=== PATIENT | female | born 2005 | race Caucasian/White ===

== ENCOUNTER 2025-02-09 17:29 | Outpatient (REF) | payer MEDICAID, SELFPAY ==
--- OUTSIDE RECORDS SUMMARY | 2025-02-09 11:00 | XMS_ITS | Encounter Summary ---
Author Organization [employer] Address [address] 7[address] [place] [address] Care Team Providers Care Ladies' Locker Room Attendant Name Role Phone Reena Gonsalez MD Primary Care Provider [phone] Encounter Details Date Type Department Care Team ([facility] st Contact Info) Description 02/09/2025 11:00 AM EDT Office Visit [facility] [address] [place], [place] [phone] Soha Arndt FNP [address] [place], [place] [phone] PID (pelvic inflammatory disease) (Primary Dx); UTI symptoms Social History Tobacco Use Types Packs/Day Years Used Date Smoking Tobacco: Never Passive Smoke Exposure: Never Smokeless Tobacco: Never Depression Answer Date Recorded Patient Health Questionnaire-9 Score 9 02/09/2025 Patient Health Questionnaire-9 Score 9 02/09/2025 Last PHQ-9: Questionnaire Data Not on file 1 Housing Stability Answer Date Recorded What is your housing situation today? I have martell kim 02/09/[address] you li ve. Do you have problems with any of the following? None of the above 02/09/2025 Food Insecurity Answer Date Recorded Within the past 12 months, y ou worried that your food would run out before you got money to buy more: Never True 02/09/2025 Within the past 12 months,th e food you bought just didn't last and you didn't have enough money to get more: Never True Transportation Answer Date Recorded In the past 12 months, has l ack of transportation kept you from medical appts, meetings, work or from getting things needed for daily living? No 02/09/2025 Utilities Answer Date Recorded In the past 12 months, has t he electric, gas, oil or water company threatened to shut off services in your home? No 02/09/2025 Depression Answer Date Recorded Patient Health Questionnaire-2 Score 1 02/09/2025 Internet Access Answer Date Recorded Internet Access Q1 Yes 02/09/2025 Internet Access Q2 Not on file 02/09/2025 Comments Unknown Sex and Gender Information Value Date Recorded Sex Assigned at Female 02/27/2022 10:17 AM EDT Legal Sex Female 10:17 AM EDT Gender Identity Female 02/27/2022 10:17 AM EDT Sexual Orientation Bisexual 02/27/2022 10 :17 AM EDT documented as of this encounter Last Filed Vital Signs Vital Sign Reading Time Taken Comments Blood Pressure 118/70 02/09/2025 11:10 AM EDT Pulse 64 02/09/2025 11:10 AM EDT Temperature 36.8 C (98.2 F) 02/09/2025 11:10 AM EDT Respiratory Rate 16 02/09/2025 11:10 AM EDT Oxygen Saturation 98% 02/09/2025 11:10 AM EDT Inhaled Oxygen Concentration - - Weight 73.3 kg (161 lb 8 oz) 02/09/2025 11:10 AM EDT Height 163.2 cm (5' 4.24 ) 02/09/2025 11:10 AM E DT Body Mass Index 27.51 02/09/2025 11:10 AM EDT documented in this encounter Functional Status * Over the past 2 weeks, how often have you been bothered by any of the following problems? Question Answer Date of Assessment Author Patient Health Questionnaire -2 Score 1 02/09/2025 1:01 PM EDT Britta Altamirano MA * Little interest or pleasure in doing things Answer Date of Assessment Author Several days 02/09/2025 1:01 PM EDT Pablito Altamirano MA * Feeling down, depressed, or hopeless Answer Date of Assessment Author Not at all 02/09/2025 1:01 PM EDT Pablito Altamirano MA * Trouble falling or staying asleep, or sleeping too much Answer Date of Assessment Author More than half the days 02/09/2025 1:01 PM EDT Britta Osborne MA * Feeling tired or having little energy Answer Date of Assessment Author More than half the days 02/09/2025 1:01 PM EDT Britta Osborne MA * Poor appetite or overeating Answer Date of Assessment Author Nearly every day 02/09/2025 1:01 PM MAMADOUT Britta Altamirano MA * Feeling bad about yourself - or that you are a failure or have let yourself or your family down Answer Date of Assessment Author Not at all 02/09/2025 1:01 PM EDT Pablito Altamirano MA * Trouble concentrating on things, such as reading the newspaper or watching television Answer Date of Assessment Author Several days 02/09/2025 1:01 PM MAMADOUT Pablito Altamirano MA * Moving or speaking so slowly that other people could have noticed? Or the opposite - being so fidgety or restless that you have been moving around a lot more than usual. Answer Date of Assessment Author Not at all 02/09/2025 1:01 PM Pablito Alfredo MA * Thoughts that you would be better off or hurting yourself in some way Answer Date of Assessment Author Not at all 02/09/2025 1:01 PM AMMADOUT Pablito Altamirano MA * Patient Health Questionnaire-9 Score Answer Date of Assessment Author 9 02/09/2025 1:01 PM MAMADOUT Pablito Altamirano MA * How difficult have these problems made it for you to do your work, take care of things at home, or get along with other people? Answer Date of Assessment Author Somewhat difficult 02/09/2025 1:01 PM EDT Britta Altamirano MA * Over the last 2 weeks, how often have you been bothered by any of the following problems? Question Answer Date of Assessment Author Feeling nervous, anxious, or on edge 1 02/09/2025 1:00 PM MAMADOUT Britta Altamirano MA Not being able to stop or co ntrol worrying 1 02/09/2025 1:00 PM MAMADOUT Britta Altamirano MA Worrying too much about diff erent things 1 02/09/2025 1:00 PM EDT Britta Altamirano MA Trouble relaxing 0 02/09/2025 1:00 PM EDT Britta Osborne MA Being so restless that it is hard to sit still 1 02/09/2025 1:00 PM EDT Britta Altamirano MA Becoming easily annoyed or irritable 0 02/09/2025 1:00 PM EDT Britta Altamirano MA Feeling afraid as if somethi ng awful might happen 0 02/09/2025 1:00 PM EDT Britta Altamirano MA MARIA DE JESUS-7 Total Score 4 02/09/2025 1:00 PM EDT Britta Altamirano MA documented as of this encounter Plan of Treatment Upcoming Encounters Date Type Department Care Team (Late st Contact Info) Description 02/24/2025 9:00 AM EDT Office Visit [facility] MED[facility]INE [address] [place] [address] Soha Arndt FNP [address] [place] [address] 03/11/2025 11:15 AM EST Office Visit [address] [address] Reena Gonsalez MD [address] [place] [address] Scheduled Orders Name Type Priority Associated Diagnoses Orde r Schedule Bacterial Vaginosis Panel Microbiology Routine PID (pelvic inflammatory disease) Ordered: 02/09/2025 Chlamydia/N. Gonorrhoeae, PCR, Urine Lab Routine PID (pelvic inflammatory disease) Ordered: 02/09/2025 Bacterial Vaginosis Panel Microbiology Routine PID (pelvic inflammatory disease) Ordered: 02/09/2025 documented as of this encounter Procedures Procedure Name Priority Date/Time Associated Diagnosis Comments POCT , URINE Routine 02/09/2025 11:52 AM EDT PID (pelvic inflammatory disease) POCT URINALYSIS DIPSTICK Routine 02/09/2025 11:52 AM EDT UTI symptoms documented in this encounter Results * POCT Urinalysis (02/09/2025 11:52 AM EDT) Color, UA Yellow Clarity, UA Cloudy Glucose, UA Negative Bilirubin, UA Negative Ketones, UA Negative Spec Grav, UA 1.005 Blood, UA Negative Negative, None Detected pH, UA 6.0 Protein, UA Negative Urobilinogen, UA 0.2 Leukocytes, UA Negative Negative, Rare, Trace Nitrite, UA Negative Negative, None Detected QC Media Lot # [id number] Lot# Expiration Date , Urine (Urine, Random) 02/09/2025 11:52 AM EDT [email or web address] POINT OF CARE TEST ENTER/EDIT ORDERABLES Final Result * POCT Urine (02/09/2025 11:52 AM EDT) Preg Test, Ur Negative Negative, Indeterminate, None Detected, Invalid, Specimen unsatisfactory for evaluation, Weakly Positive, 2+ QC Media Lot # [id number] Lot# Expiration Date Urine 02/09/2025 11:5 2 AM EDT [facility] POINT OF CARE TEST ENTER/EDIT ORDERABLES Final Result documented in this encounter Visit Diagnoses Diagnosis PID (pelvic inflammatory disease)- Primary Unspecified inflammatory disease of female pelvic organs and tissues UTI symptoms documented in this encounter Additional Health Concerns Assessment Noted Time PHQ-9 Depression Total Score: 9 02/10/20 25 1:01 PM EDT documented as of this encounter Care Teams Ladies' Locker Room Attendant Relationship Specialty Start Date End Date Reena Gonsalez MD [address] [place] [phone] PCP - General Family Medicine 02/07/22 documented as of this encounter
--- OUTSIDE RECORDS SUMMARY | 2025-02-09 17:32 | XMS_ITS | Encounter Summary ---
Author Organization [employer] Address [address] [place] [address] 7t [place] [address] Care Team Providers Care Hand Stoner Name Role Phone Reena Gonsalez MD Primary Care Provider [phone] Reason for Visit * Reason Onset Date Comments FYI 07/01/2024 Encounter Details Date Type Department Care Team (Late st Contact Info) Description 07/01/2024 Telephone [facility] MEDICINE [address] [place], [place] [phone] Reena Gonsalez MD [address] [place], [place] [phone] FY Social History Tobacco Use Types Packs/Day Years Used Date Smoking Tobacco: Never Passive Smoke Exposure: Never Smokeless Tobacco: Never Depression Answer Date Recorded Patient Health Questionnaire-9 Score 15 02/25/2024 Patient Health Questionnaire-9 Score 15 02/25/2024 Last PHQ-9: Questionnaire Data Not on file 1 Housing Stability Answer Date Recorded What is your housing situation today? I have martell kim 07/09/[address] you li ve. Do you have problems with any of the following? None of the above 07/09/2023 Food Insecurity Answer Date Recorded Within the past 12 months, y ou worried that your food would run out before you got money to buy more: Never True 07/09/2023 Within the past 12 months,th e food you bought just didn't last and you didn't have enough money to get more: Never True 02/2024 Transportation Answer Date Recorded In the past 12 months, has l ack of transportation kept you from medical appts, meetings, work or from getting things needed for daily living? No 07/09/2023 Utilities Answer Date Recorded In the past 12 months, has t he electric, gas, oil or water company threatened to shut off services in your home? No 07/09/2023 Depression Answer Date Recorded Patient Health Questionnaire-2 Score 4 02/25/2024 Comments Unknown Sex and Gender Information Value Date Recorded Sex Assigned at Female 02/27/2022 10:17 AM EDT Legal Sex Female 10:17 AM EDT Gender Identity Female 02/27/2022 10:17 AM EDT Sexual Orientation Bisexual 02/27/2022 10 :17 AM EDT documented as of this encounter Miscellaneous Notes * Telephone Encounter - Mainor [employer]emak[employer]es - 07/01/2024 10:18 AM EST Tc from pt stating that she has not been taking medication prescribed for anxiety and depression. Pt is requesting a call back at [phone] documented in this encounter Plan of Treatment Upcoming Encounters Date Type Department Care Team (Late st Contact Info) Description 02/24/2025 9:00 AM EDT Office Visit [facility] MEDICINE [address] [place] [address] Soha Arndt FNP [address] [place] [address] 03/11/2025 11:15 AM EST Office Visit [address] [address] Reena Gonsalez MD [address] [place] [phone] documented as of this encounter Visit Diagnoses Not on filedocumented in this encounter Additional Health Concerns Assessment Noted Time PHQ-9 Depression Total Score: 15 024 3:15 PM EDT documented as of this encounter Care Teams Hand Stoner Relationship Specialty Start Date End Date Reean Gonsalez MD [address] [place] [phone] PCP - General Family Medicine 02/07/22 documented as of this encounter
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
--- OUTSIDE RECORDS SUMMARY | 2025-02-09 17:32 | XMS_ITS | Encounter Summary ---
Author Organization [employer] Address [address] [place] [address] 7t [place] [address] Care Team Providers Care Census Enumerator Name Role Phone Reena Gonsalez MD Primary Care Provider [phone] Reason for Visit * Reason Onset Date Comments Appointment Request 07/01/2024 Encounter Details Date Type Department Care Team (Late st Contact Info) Description 07/01/2024 Telephone [facility] MEDICINE [address] [place], [place] [phone] Reena Gonsalez MD [address] [place], [place] [phone] Appointment Request Social History Tobacco Use Types Packs/Day Years [...] encounter Miscellaneous Notes * Telephone Encounter - Gordo Reinaldo - 07/01/2024 9:31 AM EST Tc from pt requesting to reschedule today's follow up, staff writer was unable to find availability. Please contact pt at [phone]. documented in this encounter Plan of Treatment Upcoming Encounters Date Type Department Care Team (Late st Contact Info) Description 02/24/2025 9:00 AM EDT Office Visit [facility] MEDICINE [address] [place] [phone] Soha Arndt FNP [address] [place] [address] 03/11/2025 11:15 AM EST Office Visit [address] [address] Reena Gonsalez MD [address] [place] [phone] documented as of this encounter Visit Diagnoses Not on filedocumented in this encounter Additional Health Concerns Assessment Noted Time PHQ-9 Depression Total Score: 15 024 3:15 PM EDT documented as of this encounter Care Teams Census Enumerator Relationship Specialty Start Date End Date Reena Gonsalez MD [address] [place] [address] PCP - General Family Medicine 02/07/22 documented as of this encounter
--- OUTSIDE RECORDS SUMMARY | 2025-02-09 17:32 | XMS_ITS | Encounter Summary ---
Author Organization [employer] Address 75 [facility] 7t [place] [address] Care Team Providers Care Work Measurement Engineer Name Role Phone Reena Gonsalez MD Primary Care Provider [phone] Reason for Visit * Reason Onset Date Comments Nurse Triage 02/06/2025 Encounter Details Date Type Department Care Team (Late st Contact Info) Description 02/06/2025 Telephone [facility] MEDICINE [address] [place], [place] [phone] Reena Gonsalez MD [address] [place], [place] [phone] Nurse Triage Social History Tobacco Use Types Packs/Day Years [...] the past 12 months, has t he [employer], gas, oil or water [employer] threatened to shut off services in your [...] encounter Miscellaneous Notes * Telephone Encounter - Marielle Paz RN - 02/06/2025 9:50 AM EDT T/C placed to pt to triage. Pt reporting midline abdominal pain located under her umbilicus. She states sometimes pain radiates to her left side. This has been happening for a long time but has worsened over the past couple months per pt. Pt reports that she has an ovarian cyst so she is unsure if r/t that. Pt reports that she takes Tylenol which completely alleviates her pain. However, when pain is happening it is sometimes 10/10 pain and she feels like she can't move. She took Tylenol a little while ago so feels no pain right now. Pt reports last menses 2 weeks ago, has nexplanon for contraception. Pt reports that pain exacerbated with sex and so she hasn't had sex in a very long time because she is scared of the pain. Pt denies recent vomiting, diarrhea, fever, vaginal discharge or odor, changes in voiding urine or feces, or numbness or tingling in extremities. Pt declined WIC today or tomorrow. Booked ASK for Sunday with Soha. Pt advised to rest and take Tylenol PRN, never exceeding >3g/ day. Pt given WIC hours of operation in case she changes her mind. Gave ED precautions and informed of NTTS in case she has any questions or concerns while we are closed. Pt agrees withdisposition . Protocol Used: Abdominal Pain - Female (Adult) Protocol-Based Disposition: See in Office or Video Visit within 2 Weeks Positive Triage Question: * Pain with sexual intercourse (dyspareunia) * All higher-acuity triage questions were negative Care Advice Discussed: * Rest * Reasons To Call Back - Severe pain lasts over 1 hour - You become worse * Telephone Encounter - Eve Geovanni Villa - 02/06/2025 9:29 AM EDT Symptom: Abdominal Pain - Female - Not Outcome: Talk to a nurse or provider within 15 minutes Reason: Severe pain now The caller accepted this outcome. Contact pt at [phone] documented in this encounter Plan of Treatment Upcoming Encounters Date Type Department Care Team (Late st Contact Info) Description 02/24/2025 9:00 AM EDT Office Visit [facility] MEDICINE [address] [place] [phone] Soha Arndt FNP [address] [place] [address] 03/11/2025 11:15 AM EST Office Visit [facility] MEDICINE [address] [place] [phone] Reena Gonsalez MD [address] [place] [phone] documented as of this encounter Visit Diagnoses Not on filedocumented in this encounter Additional Health Concerns Assessment Noted Time PHQ-9 Depression Total Score: 15 024 3:15 PM EDT documented as of this encounter Care Teams Work Measurement Engineer Relationship Specialty Start Date End Date Reena Gonsalez MD [address] [place] [phone] PCP - General Family Medicine 02/07/22 documented as of this encounter
--- OUTSIDE RECORDS SUMMARY | 2025-02-09 17:32 | XMS_ITS | Encounter Summary ---
Author Organization [employer] Address 75 [facility] 7t [place] [address] Care Team Providers Care Belt Brander Name Role Phone Reena Gonsalez MD Primary Care Provider [phone] Reason for Visit * Reason Onset Date Comments callback requested 03/07/2024 Encounter Details Date Type Department Care Team (Late st Contact Info) Description 03/07/2024 Telephone [facility] MEDICINE [address] [place], [place] [phone] Reena Gonsalez MD [address] [place], [place] [phone] callback requested Social History Tobacco Use Types Packs/Day Years [...] encounter Miscellaneous Notes * Telephone Encounter - Cyndy Galarza - 03/07/2024 4:07 PM EST Tc from [facility] ([facility]) requesting a callback due to pt reasonable accomodation paperwork. [facility] callback number [phone] / ext [phone] documented in this encounter Plan of Treatment Upcoming Encounters Date Type Department Care Team (Late st Contact Info) Description 02/24/2025 9:00 AM EDT Office Visit [facility] MEDICINE [address] [place] [phone] Soha Arndt FNP [address] [place] [address] 03/11/2025 11:15 AM EST Office Visit [address] [address] Reena Gonsalez MD [address] [place] [phone] documented as of this encounter Visit Diagnoses Not on filedocumented in this encounter Additional Health Concerns Assessment Noted Time PHQ-9 Depression Total Score: 15 024 3:15 PM EDT documented as of this encounter Care Teams Belt Brander Relationship Specialty Start Date End Date Reena Gonsalez MD [address] [place] [phone] PCP - General Family Medicine 02/07/22 documented as of this encounter
--- OUTSIDE RECORDS SUMMARY | 2025-02-09 17:32 | XMS_ITS | Encounter Summary ---
Author Organization [employer] Address 75 [facility] 7t [place] [address] Care Team Providers Care Electrical Transmission Engineer Name Role Phone Reena Gonsalez MD Primary Care Provider [phone] Encounter Details Date Type Department Care Team (Latest Contact Info) Description 02/09/2025 Travel Social History Tobacco Use Types Packs/Day Years [...] AM EDT documented as of this encounter Functional Status * Over the [...] Author Not at all 02/09/2025 1:01 PM MAMADOUT Pablito Altamirano MA * Thoughts that you would be better off or hurting yourself in some way Answer Date of Assessment Author Not at all 02/09/2025 1:01 PM EDT Pablito Altamirano MA * Patient Health Questionnaire-9 Score Answer Date of Assessment Author 9 02/09/2025 1:01 PM EDT Pablito Altamirano MA * How difficult have [...] or on edge 1 02/09/2025 1:00 PM EDT Britta Altamirano MA Not being able to stop or co ntrol worrying 1 02/09/2025 1:00 PM EDT Britta Altamirano MA Worrying too much about diff erent things 1 02/09/2025 1:00 PM EDT Britta Altamirano MA Trouble relaxing 0 02/09/2025 1:00 PM EDT Britta Osborne MA Being so restless that it is hard to sit still 1 02/09/2025 1:00 PM MAMADOUT Britta Altamirano MA Becoming easily annoyed or irritable 0 02/09/2025 1:00 PM EDT Britta Altamirano MA Feeling afraid as if somethi ng awful might happen 0 02/09/2025 1:00 PM EDT Britta Altamirano MA MARIA DE JESUS-7 Total Score 4 02/09/2025 1:00 PM MAMADOUT Britta Altamirano MA documented as of this encounter Plan of Treatment Upcoming Encounters Date Type Department Care Team (Late st Contact Info) Description 02/24/2025 9:00 AM EDT Office Visit [facility] MEDICINE [address] [place] [address] Soha Arndt FNP [address] [place] [address] 03/11/2025 11:15 AM EST Office Visit [facility] MEDICINE [address] [place] [phone] Reena Gonsalez MD [address] [place] [address] documented as of this encounter Visit Diagnoses Not on filedocumented in this encounter Additional Health Concerns Assessment Noted Time PHQ-9 Depression Total Score: 9 02/10/20 25 1:01 PM EDT documented as of this encounter Care Teams Electrical Transmission Engineer Relationship Specialty Start Date End Date Reena Gonsalez MD [address] [place] [address] PCP - General Family Medicine 02/07/22 documented as of this encounter
--- OUTSIDE RECORDS SUMMARY | 2025-02-09 17:32 | XMS_ITS | Encounter Summary ---
Author Organization [employer] Address 75 [facility] 7t [place] [address] Care Team Providers Care Tool Builder Name Role Phone Reena Gonsalez MD Primary Care Provider [phone] Reason for Visit * Reason Onset Date Comments Nurse Triage 12/30/2024 Encounter Details Date Type Department Care Team (Late st Contact Info) Description 12/30/2024 Telephone [facility] MEDICINE [address] [place], [place] [phone] Reena Gonsalez MD [address] [place], [place] [phone] Nurse Triage Social History Tobacco Use Types [...] encounter Miscellaneous Notes * Telephone Encounter - Omi Vicente - 12/30/2024 1:42 PM EDT Tc from pt returning call. Contact pt at [phone] * Telephone Encounter - Syeda Keita - 12/30/2024 11:47 AM EDT Symptoms: Breast Symptoms, Abdominal Pain - Female - Not Outcome: Schedule an urgent appointment (within 4 hours) or talk to a nurse or provider soon Reason: Getting worse The caller accepted this outcome. Contact pt at [phone] documented in this encounter Plan of Treatment Upcoming Encounters Date Type Department Care Team (Late st Contact Info) Description 02/24/2025 9:00 AM EDT Office Visit [facility] MEDICINE [address] [place] [address] Soha Arndt FNP [address] [place] [phone] 03/11/2025 11:15 AM EST Office Visit [facility] MEDICINE [address] [place] [address] Reena Gonsalez MD [address] [place] [address] documented as of this encounter Visit Diagnoses Not on filedocumented in this encounter Additional Health Concerns Assessment Noted Time PHQ-9 Depression Total Score: 15 024 3:15 PM EDT documented as of this encounter Care Teams Tool Builder Relationship Specialty Start Date End Date Reena Gonsalez MD [address] [place] [address] PCP - General Family Medicine 02/07/22 documented as of this encounter
[2025-02-10 05:04] LABS: Bacterial Vaginosis PCR NEGATIVE (Negative); Candida Group PCR NOT DETECTED (Not Detect); Candida glab krusei PCR NOT DETECTED (Not Detect); Trichomonas vaginalis PCR NOT DETECTED (Not Detect)
== END 2025-02-09 17:30 | disposition home or self-care (01) ==
LOC: HO.HHCLNP 17:29
PROVIDERS: Visit Provider Nurse Practitioner Family
DX: Z20.2 Contact with and (suspected) exposure to infections with a predominantly sexual mode of transmission (principal); R39.9 Unspecified symptoms and signs involving the genitourinary system
CPT/HCPCS: 81515

== ENCOUNTER 2025-03-11 12:05 | Outpatient (REF) | payer MEDICAID, SELFPAY ==
--- OUTSIDE RECORDS SUMMARY | 2025-03-11 11:15 | XMS_ITS | Encounter Summary ---
Author Organization [employer] Address 75 [facility] 7 [place] [address] Care Team Providers Care Emergency Care Tech Name Role Phone Reena Gonsalez MD Primary Care Provider [phone] Encounter Details Date Type Department Care Team ([facility] st Contact Info) Description 03/11/2025 11:15 AM EST Office Visit [facility] MEDICINE [address] [place] [address] [phone] Reena Gonsalez MD [address] [place], [place] [phone] Weight loss (Primary Dx); Abnormal uterine bleeding (AUB); Anemia, unspecified type; Routine screening for STI (sexually transmitted infection); Encounter for immunization Social History Tobacco Use Types Packs/Day Years [...] Sign Reading Time Taken Comments Blood Pressure 118/76 03/11/2025 11:40 AM EST Pulse 75 03/11/2025 11:40 AM EST Temperature 36 C (96.8 F) 03/11/2025 11:40 AM EST Respiratory Rate 17 03/11/2025 11:40 AM EST Oxygen Saturation 99% 03/11/2025 11:40 AM EST Inhaled Oxygen Concentration - - Weight 71.9 kg (158 lb 9.6 oz) 03/11/2025 11:40 AM EST Height 162.6 cm (5' 4 ) 03/11/2025 11:40 AM EST Body Mass Index 27.22 03/11/2025 11:40 AM EST documented in this encounter Plan of Treatment Scheduled Orders Name Type Priority Associated Diagnoses Orde r Schedule Comprehensive Metabolic Panel Lab Routine Weight loss Anemia, unspecified type Expected: 03/11/2025 (Approximate), Expires: 03/11/2026 TSH with Reflex to Free T4 Lab Routine Weight loss Anemia, unspecified type Expected: 03/11/2025 (Approximate), Expires: 03/11/2026 Ferritin Lab Routine Anemia, unspecified type Expected: 03/11/2025 (Approximate), Expires: 03/11/2026 Iron And Total Iron Binding Capacity Lab Routine Anemia, unspecified type Expected: 03/11/2025, Expires: 03/11/2026 Vitamin B12 (Cobalamin) and Folate Panel, Serum Lab Routine Anemia, unspecified type Expected: 03/11/2025 (Approximate), Expires: 03/11/2026 Syphilis Screen Lab Routine Routine screening for STI (sexually transmitted infection) Expected: 03/11/2025 (Approximate), Expires: 03/11/2026 Hepatitis C Antibody with Reflex to HCV, RNA, Quantitative, Real-Time PCR Lab Routine Routine screening for STI (sexually transmitted infection) Expected: 03/11/2025 (Approximate), Expires: 03/11/2026 Chlamydia/N. Gonorrhoeae RNA, TMA, Urogenitial Microbiology Routine Routine screening for STI (sexually transmitted infection) Expected: 03/11/2025 (Approximate), Expires: 03/11/2026 HIV-1/2 Antigen and Antibodies, Fourth Generation, with Reflexes Lab Routine Routine screening for STI (sexually transmitted infection) Expected: 03/11/2025 (Approximate), Expires: 03/11/2026 Hepatitis B surface antigen, EIA Lab Routine Routine screening for STI (sexually transmitted infection) Expected: 03/11/2025 (Approximate), Expires: 03/11/2026 documented as of this encounter Procedures Procedure Name Priority Date/Time Associated Diagnosis Comments CBC WITH AUTO DIFFERENTIAL Routine 03/11/2025 12:10 PM EST Weight loss Anemia, unspecified type RETICULOCYTE COUNT Routine 03/11/2025 12 :10 PM EST Anemia, unspecified type documented in this encounter Results * (ABNORMAL) Reticulocyte Count (03/11/2025 12:10 PM EST) Reticulocytes Absolute 0.062 0.026 - 0.095 X10*6/uL [facility] Immature Retic Fraction 14.4 3.0 - 15.9 % [facility] Retic HGB Equivalent 24.2(L) 30.0 - 35.0 pg [facility] Reticulocyte Percent 1.6 0.5 - 1.8 % [facility] Blood Venous blood specimen / Unknown 03/11/2025 12:10 PM EST 03/11/2025 12:52 PM EST us Reena Sakurai MD LAB BLOOD ORDERABLES Final Resul t [facility] [address] [place], [place] [phone] * (ABNORMAL) CBC auto differential (03/11/2025 12:10 PM EST) White Blood Count 4.7(L) 4.8 - 10.8 X10*3/uL [facility] Red Blood Count 3.94(L) 4.20 - 5.50 X10*6/uL [facility] Hemoglobin 10.3(L) 12.0 - 16.0 g/dl [facility] Hematocrit 33.2(L) 37.0 - 47.0 % [facility] Mean Corpuscular Volume 84.3 80.0 - 98.0 fL [facility] Mean Corpuscular Hemoglobin 26.1(L) 27.0 - 33.0 pg [facility] Mean Corpuscular HGB Conc 31.0 31.0 - 35.0 g/dl [facility] Red Cell Distribution Width 16.2(H) 11.0 - 16.0 % [facility] Platelet Count 225 160 - 400 X10*3/uL [facility] Mean Platelet Volume 9.8 9.4 - 12.3 fL [facility] Neutrophils Percent Auto 60.5 45 - 73 % [facility] Imm Gran Pct Auto 0.2 0.0 - 0.4 % [facility] Lymphocytes Percent Auto 28.8 20 - 40 % [facility] Monocytes Percent Auto 6.4 2 - 11 % [facility] Eosinophils Percent Auto 2.8 0 - 4 % [facility] Basophils Percent Auto 1.3 0 - 2 % [facility] NRBC Pct Auto 0.0 0.0 - 0.2 /100WBC [facility] Neutrophils Absolute Auto 2.8 2.0 - 8.3 x10*3/uL [facility] Imm Gran Abs Auto 0.01 0.00 - 0.03 X10*3/uL [facility] Lymphocytes Absolute Auto 1.4 1.2 - 4.9 X10*3/uL [facility] Monocytes Absolute Auto 0.3 0.1 - 1.2 X10*3/uL [facility] Eosinophils Absolute Auto 0.1 0.0 - 0.4 X10*3/uL [facility] Basophils Absolute Auto 0.1 0.0 - 0.2 X10*3/uL [facility] NRBC Abs Auto 0.000 0.0 - 0.012 X10*3/uL [facility] Blood Venous blood specimen / Unknown 03/11/2025 12:10 PM EST 03/11/2025 12:52 PM EST us Reena Gonsalez MD LAB BLOOD ORDERABLES Final Resul t [facility] [address] [place] [address] [phone] documented in this encounter Visit Diagnoses Diagnosis Weight loss- Primary Loss of weight Abnormal uterine bleeding (AUB) Anemia, unspecified type Routine screening for STI (sexually transmitted infection) Screening examination for venereal disease Encounter for immunization documented in this encounter Additional Health Concerns Assessment Noted Time PHQ-9 Depression Total Score: 9 02/10/20 25 1:01 PM EDT documented as of this encounter Care Teams Emergency Care Tech Relationship Specialty Start Date End Date Reena Gonsalez MD [address] [place] [phone] PCP - General Family Medicine 02/07/22 documented as of this encounter
[2025-03-11 12:57] LABS: MANUAL DIFF FLAG NO
[2025-03-11 13:19] LABS: Hematocrit 33.2 % (37.0-47.0); Hemoglobin 10.3 g/dl (12.0-16.0); Imm Gran Abs Auto 0.01 X10*3/uL (0.00-0.03); Imm Gran Pct Auto 0.2 % (0.0-0.4); Lymphocytes Absolute Auto 1.4 X10*3/uL (1.2-4.9); Mean Corpuscular HGB Conc 31.0 g/dl (31.0-35.0); Mean Corpuscular Hemoglobin 26.1 pg (27.0-33.0); Mean Corpuscular Volume 84.3 fL (80.0-98.0); NRBC Abs Auto 0.000 X10*3/uL (0.0-0.012); NRBC Pct Auto 0.0 /100WBC (0.0-0.2); Platelet Count 225 X10*3/uL (160-400); Red Blood Count 3.94 X10*6/uL (4.20-5.50); Reticulocytes Absolute 0.062 X10*6/uL (0.026-0.095); White Blood Count 4.7 X10*3/uL (4.8-10.8)
--- OUTSIDE RECORDS SUMMARY | 2025-03-11 14:54 | XMS_ITS | Clinical Summary ---
Author Organization [employer] Address [address] [facility] 7t [place] [address] Care Team Providers Care Missile Technician Name Role Phone Reena Gonsalez MD Primary Care Provider [phone] Allergies Active Allergy Reactions Criticality Noted Date [...] and insomnia). 30 capsule 1 4 Active docusate sodium (Colace) 100 MG capsuleIndicatio ns:Constipation, unspecified constipation type Take 1 cap daily x 10 days then prn for constipation. Stop if diarrhea 30 capsule 5 Active ASPIRIN 81 PO Take 2 tablets by mouth at bedtime. 3 Active naproxen (Naprosyn) 500 MG tablet Take 1 tablet (500 mg) by mouth if needed in the morning and at bedtime for mild pain. 45 tablet 1 5 Active doxycycline (Vibra-Tabs) 100 MG tabletIndication s:PID (pelvic inflammatory disease) Take 1 tablet (100 mg) by mouth 2 times daily for 7 days. Take with a full glass of water and do not lie down for at least 30 minutes after. 14 tablet 5 025 Discontin ued(Thera py completed ) azithromycin (Zithromax) 500 MG tabletIndication s:PID (pelvic inflammatory disease) Take 2 tablets (1,000 mg) by mouth 1 (one) time per week for 2 doses. 4 tablet 5 025 Discontin ued(Thera py completed ) Active Problems Problem Noted Date Diagnosed Date Pelvic pain 02/24/2025 Severe depression (CMS/HCC) 02/25/2024 Assessment & Plan (02/25/2024 7:21 PM [...] controlled. - Will continue to monitor. Encounters * This document contains information received from the source organization and may not represent a complete record from that organization. Date Type Department Care Team Description 03/11/2025 11:15 AM EST Office Visit [address] [address] Reena Gonsalez MD Weight loss (Primary Dx); Abnormal uterine bleeding (AUB); Anemia, unspecified type; Routine screening for STI (sexually transmitted infection); Encounter for immunization 03/11/2025 Travel 03/10/[address] [address] Reena Gonsalez MD chart prep 02/25/2025 Travel 02/24/2025 9:00 AM EDT Office Visit [address] [address] Soha Arndt FNP Depression with anxiety (Primary Dx); Pelvic pain; Periumbilical pain 02/24/2025 Travel 02/23/[address] [address] Reena Gonsalez MD Chart Prep 02/23/2025 Patient Outreach [address] [address] Reena Gonsalez MD Care Management ([facility] chart review) 02/23/2025 Patient Outreach [address] [address] Reena Gonsalez MD 02/10/[address] [address] Soha Anrdt FNP Constipation, unspecified constipation type 02/09/2025 11:00 AM EDT Office Visit [address] [address] Soha Arndt FNP PID (pelvic inflammatory disease) (Primary Dx); UTI symptoms; Constipation, unspecified constipation type; Dyspareunia, female; Vaginal itching 02/09/2025 Travel 02/06/[address] [address] Reena Gonsalez MD Nurse Triage 01/16/2025 Telephone [facility] [address] [place] [address] Laura Morley ID 01/15/[address] [address] Reena Gonsalez MD Nurse Triage 12/30/[address] [address] Reena Gonsalez MD Nurse Triage from Last 3 Months Immunizations Immunization Administration Dates Next Due DTaP 03/07/2010, 9,2003,09/23 DTaP, 5 pertussis antigens 2003 HPV 9-Valent 10/06/2016 HPV, Quadrivalent 06/10/2013 Hep A, ped/adol, 2 dose 02/13/2018,10/06/2016 Hep B, Adolescent or Pediatric 2003,2003,2003 IPV 01/15/2009, 4,2003,07/12 Influenza injectable quadriv alent preservative free 01/30/2022,03/29/2021,02/13/2018,03/07 Influenza, IIV3, injectable 01/30/2022 Influenza, seasonal, injecta ble, preservative free 03/11/2025,06/10/2013,03/07/2011 MMR 01/15/2009,06/10/2004 Meningococcal MCV4P ACYW-135 03/29/2021,10/07/19 17 [...] is your housing situation today? I have martellskye kim 02/09/[address] you [...] Mass Index 27.22 03/11/2025 11:40 AM EST Plan of Treatment Health Maintenance Due Date Last Done Comments HIV Screening 2003 Lipid Panel 2003 Family Planning (PISQ) 2018 Meningococcal B Vaccine (1 of 2 - Standard) 2019 Hepatitis C Screening 2021 Chlamydia and Gonorrhea Screening 01/30/2023 01/30/2022, 04/02/2021 Pap Smear 2024 COVID-19 Vaccine ( season) 2024 09/13/2022, 07/12/2022 Depression Monitoring 08/10/2025 02/09/2025, 025 Alcohol/Substance Use Screening 02/09/2026 02/09/2025 Disability Screening 02/09/2026 02/09/2025 SDOH Screening 02/09/2026 02/09/2025 Tobacco Screening 03/11/2026 03/11/2025 DTaP/Tdap/Td Vaccines (8 - Td or Tdap) [...] Patients (6 to 49) Years Completed 07/09/2023 Influenza Vaccine Completed 03/11/2025, , 01/30/2022, Additional history exists HIB Vaccines Aged Out No longer eligi ble based on patient's age to complete this topic RSV under 20 months Aged Out No longe r eligible based on patient's age to complete this topic Rotavirus Vaccines Aged Out No longer eligible based on patient's age to complete this topic Procedures Procedure Name Priority Date/Time Associated Diagnosis Comments RETICULOCYTE COUNT Routine 03/11/2025 12 :10 PM EST Anemia, unspecified type CBC WITH AUTO DIFFERENTIAL Routine 03/11/2025 12:10 PM EST Weight loss Anemia, unspecified type POCT URINALYSIS DIPSTICK Routine 02/09/2025 11:52 AM EDT UTI symptoms Vaginal itching POCT , URINE Routine 02/09/2025 11:52 AM EDT PID (pelvic inflammatory disease) BACTERIAL VAGINOSIS PANEL Routine 02/09/2025 11:50 AM EDT PID (pelvic inflammatory disease) ZZZ HISTORICAL CHLAMYDIA/N. GONORRHOEAE RNA, TMA, UROGENITAL Routine 01/30/2022 4:13 PM EDT from Last 3 Months or Most Recently Relevant to Health Maintenance Results * (ABNORMAL) CBC auto differential (03/11/2025 12:10 PM EST) White Blood Count 4.7(L) 4.8 - 10.8 X10*3/uL [facility] Red Blood Count 3.94(L) 4.20 - 5.50 X10*6/uL [facility] Hemoglobin 10.3(L) 12.0 - 16.0 g/dl [facility] Hematocrit 33.2(L) 37.0 - 47.0 % [facility] Mean Corpuscular Volume 84.3 80.0 - 98.0 fL [facility] Mean Corpuscular Hemoglobin 26.1(L) 27.0 - 33.0 pg [facility] Mean Corpuscular HGB Conc 31.0 31.0 - 35.0 g/dl [facility] Red Cell Distribution Width 16.2(H) 11.0 - 16.0 % [facility] Platelet Count 225 160 - 400 X10*3/uL [facility] Mean Platelet Volume 9.8 9.4 - 12.3 fL [facility] Neutrophils Percent Auto 60.5 45 - 73 % [facility] Imm Gran Pct Auto 0.2 0.0 - 0.4 % [facility] Lymphocytes Percent Auto 28.8 20 - 40 % [facility] Monocytes Percent Auto 6.4 2 - 11 % [facility] Eosinophils Percent Auto 2.8 0 - 4 % [facility] Basophils Percent Auto 1.3 0 - 2 % [facility] NRBC Pct Auto 0.0 0.0 - 0.2 /100WBC [facility] Neutrophils Absolute Auto 2.8 2.0 - 8.3 x10*3/uL [facility] Imm Gran Abs Auto 0.01 0.00 - 0.03 X10*3/uL [facility] Lymphocytes Absolute Auto 1.4 1.2 - 4.9 X10*3/uL [facility] Monocytes Absolute Auto 0.3 0.1 - 1.2 X10*3/uL [facility] Eosinophils Absolute Auto 0.1 0.0 - 0.4 X10*3/uL [facility] Basophils Absolute Auto 0.1 0.0 - 0.2 X10*3/uL [facility] NRBC Abs Auto 0.000 0.0 - 0.012 X10*3/uL [facility] Blood Venous blood specimen / Unknown 03/11/2025 12:10 PM EST 03/11/2025 12:52 PM EST Reena Gonsalez MD LAB BLOOD ORDERABLES Final Resul t Performing Organization Address [facility] de Phone Number [facility] [address] [place] [phone] * (ABNORMAL) Reticulocyte Count (03/11/2025 12:10 PM EST) Reticulocytes Absolute 0.062 0.026 - 0.095 X10*6/uL [facility] Immature Retic Fraction 14.4 3.0 - 15.9 % [facility] Retic HGB Equivalent 24.2(L) 30.0 - 35.0 pg [facility] Reticulocyte Percent 1.6 0.5 - 1.8 % [facility] Blood Venous blood specimen / Unknown 03/11/2025 12:10 PM EST 03/11/2025 12:52 PM EST Reena Gonsalez MD LAB BLOOD ORDERABLES Final Resul t Performing Organization Address [facility] Co de Phone Number [facility] [address] [place] [phone] * POCT Urine (02/09/2025 11:52 AM EDT) Preg Test, Ur Negative Negative, Indeterminate, None Detected, Invalid, Specimen unsatisfactory for evaluation, Weakly Positive, 2+ QC Media Lot # [id number] Lot# Expiration Date [id number] Urine 02/09/2025 11:5 2 AM EDT Soha Arndt AUTOMATED ACCESS SYSTEMS TECHNICIAN POINT OF CARE TEST ENTER/EDIT ORDERABLES Final [...] Media Lot # [id number] Lot# Expiration Date [id number] Urine (Urine, Random) 02/09/2025 11:52 AM EDT [facility] POINT OF CARE TEST ENTER/EDIT ORDERABLES Final Result * Bacterial Vaginosis Panel (02/09/2025 11:50 AM EDT) TRICHOMONAS VAGINALIS DETECTION BY PCR NOT DETECTED Not Detect [facility] BACTERIAL VAGINOSIS DETECTION BY PCR NEGATIVE Negative [facility] Comment:The BV organism targ ets of the Xpert Xpress MVP test can becommensal in women; Xpert Xpress MVP positive results forbacterial vaginosis should be considered in conjunction withother clinical and patient information to determine thedisease status. Organisms that are not detected by the XpertXpress MVP test have also been reported to be associatedwith BV and aerobic vaginitis.The Xpert Xpress MVP test performance has not been evaluatedin patients under the age of 14. MY GROUP DETECTION BY PCR NOT DETECTED Not Detect [facility] My glab krusei PCR NOT DETECTED Not Detect [facility] Swab Vaginal structure / Unknown 02/09/2025 11:50 AM EDT 02/09/2025 5:29 PM EDT [facility] LAB MICROBIOLOGY - GENERAL ORD ERABLES Final Result [facility] [address] [place] [phone] * CHLAMYDIA/N. GONORRHOEAE RNA, TMA, UROGENITAL (01/30/2022 4:13 PM EDT) Chlamydia trachomatis RNA, TMA, Urogenital NOT DETECTED NOT DETECTED [facility] COMMENT SEE COMMENT [facility] Comment: The analytical performance characteristics of this assay, when used to test SurePath(TM) specimens have been determined by [employer]. The modifications have not been cleared or approved by the FDA. This assay has been validated pursuant to the CLIA regulations and is used for clinical purposes. For additional information, please refer to https://education.Brux[employer]/faq/QLO067 (This link is being provided for information/ educational purposes only.) Neisseria gonorrhoeae RNA, TMA, Urogenital NOT DETECTED NOT DETECTED [facility] 01/30/2022 4:13 PM EDT Reena Gonsalez MD HISTORICAL/NON ORDERABLE LABS Fi nal Result CONVERTED [facility] from Last 3 Months or Most Recently Relevant to Health Maintenance Insurance C3 Care Teams Missile Technician Relationship Specialty Start Date End Date Reena Gonsalez MD [address] [place] [address] PCP - General Family Medicine 02/07/22
--- OUTSIDE RECORDS SUMMARY | 2025-03-11 14:54 | XMS_ITS | Encounter Summary ---
Author Organization [employer] Address [address] [facility] 7t [place] [address] Care Team Providers Care Senior Process Analyst Name Role Phone Reena Gonsalez MD Primary Care Provider [phone] Tracie Hannon Unavailable [phone] Perez Bryan Unavailable Reason for Visit * Reason Onset Date Comments Appointment Request 07/01/2024 Encounter Details Date Type Department Care Team ([facility] st Contact Info) Description 07/01/2024 Telephone [facility] MEDICINE [address] [place] [address] Reena Gonsalez MD [address] [place] [address] Appointment Request Social History Tobacco Use Types [...] pt requesting to reschedule today's follow up, play writer was unable to find availability. Please contact pt at [phone]. documented in this encounter Plan of Treatment Not on file documented as of this encounter Visit Diagnoses Not on filedocumented in this encounter Additional Health Concerns Assessment Noted Time PHQ-9 Depression Total Score: 15 024 3:15 PM EDT documented as of this encounter Care Teams Senior Process Analyst Relationship Specialty Start Date End Date Reena Gonsalez MD [address] [place] [phone] PCP - General Family Medicine 02/07/22 Tracie Hannon Registered Nurse 02/23/25 02/23/25 Perez Bryan 02/23/25 02/23/25 documented as of this encounter
--- OUTSIDE RECORDS SUMMARY | 2025-03-11 14:54 | XMS_ITS | Encounter Summary ---
Author Organization [employer] Address [address] [facility] 7t [place] [address] Care Team Providers Care Waxer Operator Name Role Phone Reena Gonsalez MD Primary Care Provider [phone] Tracie Hannon Unavailable [phone] Perez Bryan Unavailable Reason for Visit * Reason Onset Date Comments Nurse Triage 12/30/2024 Encounter Details Date Type Department Care Team (Late st Contact Info) Description 12/30/2024 Telephone [facility] MEDICINE [address] [place] [address] Reena Gonsalez MD [address] [place] [address] Nurse Triage Social History Tobacco Use Types [...] from pt returning call. Contact pt at [phone] * Telephone Encounter - Syeda Keita - 12/30/2024 11:47 AM EDT Symptoms: Breast Symptoms, Abdominal Pain - Female - Not Outcome: Schedule an urgent appointment (within 4 hours) or talk to a nurse or provider soon Reason: Getting worse The caller accepted this outcome. Contact pt at [phone] documented in this encounter Plan of Treatment Not on file documented as of this encounter Visit Diagnoses Not on filedocumented in this encounter Additional Health Concerns Assessment Noted Time PHQ-9 Depression Total Score: 15 024 3:15 PM EDT documented as of this encounter Care Teams Waxer Operator Relationship Specialty Start Date End Date Reena Gonsalez MD [address] [place] [address] PCP - General Family Medicine 02/07/22 Tracie Hannon Registered Nurse 02/23/25 02/23/25 Perez Bryan 02/23/25 02/23/25 documented as of this encounter
--- OUTSIDE RECORDS SUMMARY | 2025-03-11 14:54 | XMS_ITS | Encounter Summary ---
Author Organization [employer] Address [address] [facility] 7 [place] [address] Care Team Providers Care Business Transformation Consultant Name Role Phone Reena Gonsalez MD Primary Care Provider [phone] Reason for Visit * Reason Onset Date Comments chart prep 03/10/2025 Encounter Details Date Type Department Care Team ([facility] Contact Info) Description 03/10/2025 Telephone [facility] MEDICINE [address] [place], [place] [phone] Reena Gonsalez MD [address] [place], [place] [phone] chart prep Social History Tobacco Use Types Packs/Day Years [...] encounter Miscellaneous Notes * Telephone Encounter - Lilly Bryan MA - 03/10/2025 11:45 AM EST ..Chart Prep Labs: not applicable Images: ultrasound (04/28/25) Vaccines due: Covid Due and Flu Due Referrals: Not Applicable Screenings: PAP Overdue care gaps: LMP documented in this encounter Plan of Treatment Not on file documented as of this encounter Visit Diagnoses Not on filedocumented in this encounter Additional Health Concerns Assessment Noted Time PHQ-9 Depression Total Score: 9 02/10/20 25 1:01 PM EDT documented as of this encounter Care Teams Business Transformation Consultant Relationship Specialty Start Date End Date Reena Gonsalez MD [address] [place] [address] PCP - General Family Medicine 02/07/22 documented as of this encounter
--- OUTSIDE RECORDS SUMMARY | 2025-03-11 14:54 | XMS_ITS | Encounter Summary ---
Author Organization [employer] Address [address] [facility] 7t [place] [address] Care Team Providers Care Fight Manager Name Role Phone Reena Gonsalez MD Primary Care Provider [phone] Tracie Hannon Unavailable [phone] Perez Bryan Unavailable Reason for Visit * Reason Onset Date Comments FYI 07/01/2024 Encounter Details Date Type Department Care Team (Late st Contact Info) Description 07/01/2024 Telephone [facility] MEDICINE [address] [place] [address] Reena Gonsalez MD [address] [place] [address] FYI Social History Tobacco Use Types Packs/Day Years [...] Miscellaneous Notes * Telephone Encounter - Mainor Tello - 07/01/2024 10:18 AM EST Tc from pt stating that she has not been taking medication prescribed for anxiety and depression. Pt is requesting a call back at [phone] documented in this encounter Plan of Treatment Not on file documented as of this encounter Visit Diagnoses Not on filedocumented in this encounter Additional Health Concerns Assessment Noted Time PHQ-9 Depression Total Score: 15 024 3:15 PM EDT documented as of this encounter Care Teams Fight Manager Relationship Specialty Start Date End Date Reena Gonsalez MD [address] [place] [phone] PCP - General Family Medicine 02/07/22 Tracie Hannon Registered Nurse 02/23/25 02/23/25 Perez Bryan 02/23/25 02/23/25 documented as of this encounter
--- OUTSIDE RECORDS SUMMARY | 2025-03-11 14:54 | XMS_ITS | Encounter Summary ---
Author Organization [employer] Address [address] [facility] 7t [place] [address] Care Team Providers Care Freight Flow Sales Leader Name Role Phone Reena Gonsalez MD Primary Care Provider [phone] Tracie Hannon Unavailable [phone] Perez Bryan Unavailable Reason for Visit * Reason Comments Med Change Request Encounter Details Date Type Department Care Team ([facility] st Contact Info) Description 02/10/2025 Refill [facility] MEDICINE [address] [place] [address] Soha Arndt FNP [address] [place] [address] Constipation, unspecified constipation type Social History Tobacco Use Types Packs/Day Years [...] AM EDT documented as of this encounter Plan of Treatment Not on file documented as of this encounter Visit Diagnoses Diagnosis Constipation, unspecified constipation type documented in this encounter Additional Health Concerns Assessment Noted Time PHQ-9 Depression Total Score: 9 02/10/20 25 1:01 PM EDT documented as of this encounter Care Teams Freight Flow Sales Leader Relationship Specialty Start Date End Date Reena Gonsalez MD [address] [place] [address] PCP - General Family Medicine 02/07/22 Tracie Hannon Registered Nurse 02/23/25 02/23/25 Perez Bryan 02/23/25 02/23/25 documented as of this encounter
--- OUTSIDE RECORDS SUMMARY | 2025-03-11 14:54 | XMS_ITS | Encounter Summary ---
Author Organization [employer] Address [address] [facility] 7t [place] [address] Care Team Providers Care Senior Operator Name Role Phone Reena Gonsalez MD Primary Care Provider [phone] Tracie Hannon Unavailable [phone] Perez Bryan Unavailable Reason for Visit * Reason Onset Date Comments callback requested 03/07/2024 Encounter Details Date Type Department Care Team ([facility] st Contact Info) Description 03/07/2024 Telephone [facility] MEDICINE [address] [place] [address] Reena Gonsalez MD [address] [place] [address] callback requested Social History Tobacco Use Types Packs/Day Years Used Date Smoking Tobacco: Never Passive Smoke Exposure: Never Smokeless Tobacco: Never Depression Answer Date Recorded Patient Health Questionnaire-9 Score 15 02/25/2024 Patient Health Questionnaire-9 Score 15 02/25/2024 Last PHQ-9: Questionnaire Data Not on file 1 Housing Stability Answer Date Recorded What is your housing situation today? I have martellskye kim 07/09/[address] you [...] - 03/07/2024 4:07 PM EST Tc from [facility]) requesting a callback due to pt reasonable accomodation paperwork. [facility] callback number [phone] / ext [phone] documented in this encounter Plan of Treatment Not on file documented as of this encounter Visit Diagnoses Not on filedocumented in this encounter Additional Health Concerns Assessment Noted Time PHQ-9 Depression Total Score: 15 024 3:15 PM EDT documented as of this encounter Care Teams Senior Operator Relationship Specialty Start Date End Date eRena Gonsalez MD [address] [place] [phone] PCP - General Family Medicine 02/07/22 Tracie Hannon Registered Nurse 02/23/25 02/23/25 Perez Bryan 02/23/25 02/23/25 documented as of this encounter
--- OUTSIDE RECORDS SUMMARY | 2025-03-11 14:54 | XMS_ITS | Encounter Summary ---
Author Organization [employer] Address [address] [facility] 7t [place] [address] Care Team Providers Care Sap Basis Architect Name Role Phone Reena Gonsalez MD Primary Care Provider [phone] Encounter Details Date Type Department Care Team (Latest Contact Info) Description 03/11/2025 Travel Social History Tobacco Use Types Packs/Day [...] documented as of this encounter Care Teams Sap Basis Architect Relationship Specialty Start Date End Date Reena Gonsalez MD [address] [place] [address] PCP - General Family Medicine 02/07/22 documented as of this encounter
[2025-03-11 16:39] LABS: Alanine Aminotransferase 21 U/L (0-31); Albumin Level 4.6 g/dL (3.5-5.0); Alkaline Phosphatase 77 U/L (39-117); Anion Gap 7 (12-20); Aspartate Amino Transferase 31 U/L (5-31); Blood Urea Nitrogen 10 mg/dL (9-16); Calcium 8.9 mg/dL (8.4-10.2); Carbon Dioxide 28 mmol/L (22-29); Chloride 108 mmol/L (96-108); Estimated Glomerular Filt Rate > 60; Iron 17 mcg/dL (30-160); Percent Iron Saturation 5 % (15-50); Potassium 4.2 mmol/L (3.3-5.1); Sodium 139 mmol/L (135-145); Total Iron Binding Capacity 334 mcg/dL (228-428); Total Protein 7.4 g/dL (6.5-8.0); Unsaturated Iron Binding 317 ug/dL
[2025-03-11 17:01] LABS: Ferritin 6 ng/mL (10-122)
[2025-03-11 17:09] LABS: Folate 7.6 ng/mL (> or = 4.0); Vitamin B12 286 pg/mL (200-900)
[2025-03-12 03:35] LABS: Syphilis Screen Nonreactive (Nonreactive)
[2025-03-12 04:00] LABS: HBsAGNum1 0.58 S/CO (0.00-0.99); HIV Num 1 0.06 S/CO (0.00-0.99); Hepatitis B Surface Antigen Negative (Negative); ~HepC Num1 0.11 S/CO (0.00-0.79); ~Hepatitis C Antibody Nonreactive (Nonreactive)
== END 2025-03-11 12:06 | disposition home or self-care (01) ==
LOC: HO.HHCL 12:05
PROVIDERS: PCP Family Medicine; Visit Provider Family Medicine
DX: Z11.4 Encounter for screening for human immunodeficiency virus [HIV] (principal); Z20.6 Contact with and (suspected) exposure to human immunodeficiency virus [HIV]; Z11.59 Encounter for screening for other viral diseases; R63.4 Abnormal weight loss; D64.9 Anemia, unspecified
CPT/HCPCS: 36415; 80053; 82607; 82728; 82746; 83540; 84443; 85025; 85045; 86780; 86803; 87340; 87389

== ENCOUNTER 2025-04-28 15:09 | Outpatient (REF) | payer MEDICAID, SELFPAY ==
--- NOTE | ~2025-04-28 | US_ITS ---
EXAMINATION: US PELVIS CLINICAL INFORMATION: Pelvic pain with history of ovarian cyst. COMPARISON: None available. TECHNIQUE: Ultrasound of the pelvis is performed using both transabdominal and transvaginal transducers along with Doppler. Transvaginal imaging is performed due to inadequate visualization transabdominally. FINDINGS: Uterus: The uterus is anteverted, anteflexed and measures 7.9 x 3.3 x 4.6 cm. The cervix is unremarkable. The double wall endometrial thickness is 6.0 mm. The uterus is smooth in contour and has normal myometrial echogenicity. No visible fibroid. Adnexa: Both ovaries are visualized. There is normal color flow to the adnexa. There is no ovarian torsion. There is no pelvic ascites or fluid collection. Right ovary measures 2.6 x 2.1 x 1.6 cm. Volume 4.6 mL Left ovary measures 5.0 x 4.7 x 4.7 cm. Volume 57.8 mL. There is anechoic cyst measuring 3.7 x 3.8 x 4.3 cm. There is normal arterial andThere is no free fluid seen in the cul-de-sac. US/US pelvic and transvaginal IMPRESSION: Simple cyst left ovary measuring 4.3 cm. Right ovary, uterus and the cervix appears unremarkable. Electronically signed by: Dion Tai MD 04/28/2025 04:24 PM EST
--- OUTSIDE RECORDS SUMMARY | 2025-04-28 18:37 | XMS_ITS | Encounter Summary ---
Author Organization [employer] Address [address] [facility] 7t [place] [address] Care Team Providers Care Top Icer Name Role Phone Reena Gonsalez MD Primary Care Provider [phone] Tracie Hannon Unavailable [phone] Perez Bryan Unavailable Reason for Visit * Reason Onset Date Comments Appointment Request 07/01/2024 Encounter Details Date Type Department Care Team ([facility] st Contact Info) Description 07/01/2024 Telephone [facility] MEDICINE [address] [place] [address] Reena Gonsalez MD [address] [place] [address] Appointment Request Social History Tobacco [...] pt requesting to reschedule today's follow up, marine underwriter was unable to find availability. Please contact pt at [phone]. documented in this encounter Plan of Treatment Not on file documented as of this encounter Visit Diagnoses Not on filedocumented in this encounter Additional Health Concerns Assessment Noted Time PHQ-9 Depression Total Score: 15 024 3:15 PM EDT documented as of this encounter Care Teams Top Icer Relationship Specialty Start Date End Date Reena Gonsalez MD [address] [place] [phone] PCP - General Family Medicine 02/07/22 Tracie Hannon Registered Nurse 02/23/25 02/23/25 Perez Bryan 02/23/25 02/23/25 documented as of this encounter
--- OUTSIDE RECORDS SUMMARY | 2025-04-28 18:37 | XMS_ITS | Encounter Summary ---
Author Organization [employer] Address [address] [facility] 7t [place] [address] Care Team Providers Care Art Preparator Name Role Phone Reena Gonsalez MD Primary Care Provider [phone] Tracie Hannon Unavailable [phone] Perez Bryan Unavailable Reason for Visit * Reason Comments Med Change Request Encounter Details Date Type Department Care Team ([facility] st Contact Info) Description 02/10/2025 Refill [facility] MEDICINE [address] [place] [address] Soha Arndt FNP [address] [place], [place] [phone] Constipation, unspecified constipation type Social History Tobacco [...] documented as of this encounter Care Teams Art Preparator Relationship Specialty Start Date End Date Reena Gonsalez MD [address] [place] [address] PCP - General Family Medicine 02/07/22 Tracie Hannon Registered Nurse 02/23/25 02/23/25 Perez Bryan 02/23/25 02/23/25 documented as of this encounter
--- OUTSIDE RECORDS SUMMARY | 2025-04-28 18:37 | XMS_ITS | Encounter Summary ---
Author Organization [facility] Address [address] [place] [address] Care Team Providers Care In Home Sales Consultant Name Role Phone Reena Gonsalez MD Primary Care Provider [phone] Encounter Details Date Type Department Care Team ([facility] st Contact Info) Description 03/12/2025 Orders Only [facility] [address] [place], [place] [id number] Reena Gonsalez MD [address] [place] [address] Iron deficiency anemia, unspecified iron deficiency anemia type (Primary Dx) Social History Tobacco Use Types Packs/Day Years [...] as of this encounter Plan of Treatment Scheduled Orders Name Type Priority Associated Diagnoses Orde r Schedule CBC auto differential Lab Routine Iron deficiency anemia, unspecified iron deficiency anemia type Expected: 06/12/2025, Expires: 09/10/2025 Ferritin Lab Routine Iron deficiency anemia, unspecified iron deficiency anemia type Expected: 06/12/2025, Expires: 09/10/2025 Iron And Total Iron Binding Capacity Lab Routine Iron deficiency anemia, unspecified iron deficiency anemia type Expected: 06/12/2025, Expires: 09/10/2025 Reticulocyte Count Lab Routine Iron deficiency anemia, unspecified iron deficiency anemia type Expected: 06/12/2025, Expires: 09/10/2025 Vitamin B12 (Cobalamin) and Folate Panel, Serum Lab Routine Iron deficiency anemia, unspecified iron deficiency anemia type Expected: 06/12/2025, Expires: 09/10/2025 documented as of this encounter Visit Diagnoses Diagnosis Iron deficiency anemia, unspecified iron deficiency anemia type- Primary documented in this encounter Additional Health Concerns Assessment Noted Time PHQ-9 Depression Total Score: 9 02/10/20 25 1:01 PM EDT documented as of this encounter Care Teams In Home Sales Consultant Relationship Specialty Start Date End Date Reena Gonsalez MD [address] [place] [id number] PCP - General Family Medicine 02/07/22 documented as of this encounter
--- OUTSIDE RECORDS SUMMARY | 2025-04-28 18:37 | XMS_ITS | Clinical Summary ---
Author Organization [employer] Address [address] [place] [address] 7 [place] [address] Care Team Providers Care Electrical & Instrumentation Supervisor Name Role Phone Reena Gonsalez MD Primary Care Provider [phone] Allergies Active Allergy Reactions Criticality Noted Date Comments Penicillin G 02/25/2024 Medications * This document contains information received from the source organization and may not represent a complete record from that organization. docusate sodium (Colace) 100 MG capsuleIndication s:Constipation, unspecified constipation type Take 1 cap daily x 10 days then prn for constipation. Stop if diarrhea 30 capsule 5 Active naproxen (Naprosyn) 500 MG tablet Take 1 tablet (500 mg) by mouth if needed in the morning and at bedtime for mild pain. 45 tablet 1 5 Active ferrous sulfate (Fe Tabs) 325 (65 Fe) MG EC tablet Take 1 tablet (325 mg) by mouth every other day. Do not crush, chew, or split. 45 tablet 3 5 03/12/20 26 Active Active Problems Problem Noted Date Diagnosed Date Anemia 04/27/2025 Weight loss 03/21/2025 Assessment & Plan (03/21/2025 6:58 AM EST): - Significant weight loss, not assisted with medication - Patient reports poor p.o. intake and appetite - Check lab Pelvic pain 02/24/2025 Assessment & Plan (03/21/2025 6:59 AM EST): - Treated for PID on 02/11/2025 - Pelvic ultrasound is ordered Depression 02/25/2024 Assessment & Plan (03/21/2025 7:04 AM EST): Post depression Prescribed escitalopram and hydroxyzine in 2023, but patient did not to continue or establish outpatient behavioral health treatment Patient perceives that depressed mood and anxiety are due to her current medical conditions, and does not want to take medications Reassess her mood, behavioral health at next visit Assessment & Plan (02/25/2024 7:21 PM EDT): [...] or sesar -seen today in office by Mela Oswald who will f w pt in [...] prior thinking this can be the cause 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 Generalized anxiety disorder 02/13/2018 Asthma 10/06/2016 Assessment & Plan (03/21/2025 7:05 AM EST): - Well controlled. - Will continue to monitor. Assessment & Plan (07/10/2023 12:24 AM EDT): - Well controlled. - Will continue to monitor. Resolved Problems Problem Noted Date Diagnosed Date Resolved Date Obesity 07/09/2023 03/21/2025 Encounters * This document contains information received from the source organization and may not represent a complete record from that organization. Date Type Department Care Team Description 04/22/[address] [address] Reena Gonsalez MD chart prep 04/20/2025 Travel 04/14/2025 Patient Outreach [address] [address] Reena Gonsalez MD Pre-visit Planning (Pre-visit planning - LVM ) 03/12/2025 Orders Only [facility] [place] [address] Reena Gonsalez MD Iron deficiency anemia, unspecified iron deficiency anemia type (Primary Dx) 03/12/2025 Results Follow-Up [address] [place] [address] Reena Gonsalez MD CBC auto differential, Comprehensive Metabolic Panel, TSH with Reflex to Free T4, Additional followed-up results: 8 03/11/2025 11:15 AM EST Office Visit [facility] [place] [address] Reena Gonsalez MD Weight loss (Primary Dx); Abnormal uterine bleeding (AUB); Anemia, unspecified type; Routine screening for STI (sexually transmitted infection); Encounter for immunization; Dietary counseling; Exercise counseling; Overweight; Pelvic pain; History of severe pre-eclampsia; History of gestational hypertension; Current moderate episode of major depressive disorder, unspecified whether recurrent (CMS/HCC) ([facility]); Generalized anxiety disorder; Mild intermittent asthma without complication 03/11/2025 Travel 03/10/[address] [place] [address] Reena Gonsalez MD chart prep 02/25/2025 Travel 02/24/2025 9:00 AM EDT Office Visit [facility] [place] [address] Soha Arndt FNP Depression with anxiety (Primary Dx); Pelvic pain; Periumbilical pain 02/24/2025 Travel 02/23/2025 Telephone [facility] [place] [address] Reena Gonsalez MD Chart Prep 02/23/2025 [address] Outreach [address] [place] [address] Reena Gonsalez MD Care Management (C3CM chart review) 02/23/2025 Patient Outreach [address] [place] [address] Reena Gonsalez MD 02/10/2025 [address] [place] [address] Soha Arndt FNP Constipation, unspecified constipation type 02/09/2025 11:00 AM EDT Office Visit [facility] [place] [address] Soha Arndt FNP PID (pelvic inflammatory disease) (Primary Dx); UTI symptoms; Constipation, unspecified constipation type; Dyspareunia, female; Vaginal itching 02/09/2025 Travel 02/06/2025 Telephone [facility] [address] [place] [address] Reena Gonsalez MD Nurse Triage from Last [...] Health Maintenance Due Date Last Done Comments Family Planning (PISQ) 2018 Meningococcal B Vaccine (1 of 2 - Standard) 2019 Pap Smear 2024 Chlamydia and Gonorrhea Screening 12/08/2024 12/09/2023, 12/09/2023, 08/18/2022, Additional history exists COVID-19 Vaccine ( season) 2024 09/13/2022, 07/12/2022 Depression Monitoring 08/10/2025 02/09/2025, 025 Alcohol/Substance Use Screening 02/09/2026 02/09/2025 SDOH Screening 02/09/2026 02/09/2025 Tobacco Screening 03/11/2026 03/11/2025 Disability Screening 04/20/2026 04/20/2025 DTaP/Tdap/Td Vaccines (8 - Td or Tdap) [...] Patients (6 to 49) Years Completed 07/09/2023 HIV Screening Completed 03/11/2025 Hepatitis C Screening Completed 03/11/2025 Influenza Vaccine Completed 03/11/2025, , 01/30/2022, Additional [...] Procedure Name Priority Date/Time Associated Diagnosis Comments US PELVIS TRANSVAGINAL Routine 04/28/2025 3:51 PM EST PID (pelvic inflammatory disease) Dyspareunia, female HEPATITIS B SURFACE ANTIGEN, EIA Routine 03/11/2025 12:10 PM EST Routine screening for STI (sexually transmitted infection) HIV 1/2 ANTIGEN/ANTIBODY, FOURTH GENERATION W/RFL Routine 03/11/2025 12:10 PM EST Routine screening for STI (sexually transmitted infection) HEPATITIS C AB W/REFL TO HCV RNA, QN, PCR Routine 03/11/2025 12:10 PM EST Routine screening for STI (sexually transmitted infection) SYPHILIS SCREEN Routine 03/11/2025 12:10 PM EST Routine screening for STI (sexually transmitted infection) VITAMIN B12/FOLATE, SERUM PANEL Routine 03/11/2025 12:10 PM EST Anemia, unspecified type RETICULOCYTE COUNT Routine 03/11/2025 12 :10 PM EST Anemia, unspecified type IRON AND TOTAL IRON BINDING CAPACITY Routine 03/11/2025 12:10 PM EST Anemia, unspecified type FERRITIN Routine 03/11/2025 12:10 PM EST Anemia, unspecified type TSH W/REFLEX TO FT4 Routine 03/11/2025 1 2:10 PM EST Weight loss Anemia, unspecified type COMPREHENSIVE METABOLIC PANEL Routine 03/11/2025 12:10 PM EST Weight loss Anemia, unspecified type CBC WITH AUTO DIFFERENTIAL Routine 03/11/2025 12:10 PM EST Weight loss Anemia, unspecified type POCT URINALYSIS DIPSTICK Routine 02/09/2025 11:52 AM EDT UTI symptoms Vaginal itching POCT , URINE Routine 02/09/2025 11:52 AM EDT PID (pelvic inflammatory disease) BACTERIAL VAGINOSIS PANEL Routine 02/09/2025 11:50 AM EDT PID (pelvic inflammatory disease) [facility] HISTORICAL CHLAMYDIA/N. GONORRHOEAE RNA, TMA, UROGENITAL Routine 01/30/2022 4:13 PM EDT from Last 3 Months or Most Recently Relevant to Health Maintenance Results * US Pelvis Transvaginal (04/28/2025 3:51 PM EST) Anatomical Region Laterality Modality Pelvis Ultrasound 04/28/2025 3:51 PM EST Narrative 04/28/2025 4:27 PM EST [address] [address] Ultrasound Report Signed Patient: Denice Najera MR#: [id number] : 2005 Acct:[id number] Age/Sex: 19 / F ADM Date: 04/28/25 Loc: HO.US Attending Dr: Soha SKELTON Ordering Physician: Soha Arndt Date of Service: 04/28/25 Procedure(s): US pelvic and transvaginal Accession Number(s): [id number] cc: Soha Arndt Reason for Exam: pelvic pain with Hx of ovarian cyst EXAMINATION: US PELVIS CLINICAL INFORMATION: Pelvic pain with history of ovarian cyst. COMPARISON: None available. TECHNIQUE: Ultrasound of the pelvis is performed using both transabdominal and transvaginal transducers along with Doppler. Transvaginal imaging is performed due to inadequate visualization transabdominally. FINDINGS: Uterus: The uterus is anteverted, anteflexed and measures 7.9 x 3.3 x 4.6 cm. The cervix is unremarkable. The double wall endometrial thickness is 6.0 mm. The uterus is smooth in contour and has normal myometrial echogenicity. No visible fibroid. Adnexa: Both ovaries are visualized. There is normal color flow to the adnexa. There is no ovarian torsion. There is no pelvic ascites or fluid collection. Right ovary measures 2.6 x 2.1 x 1.6 cm. Volume 4.6 mL Left ovary measures 5.0 x 4.7 x 4.7 cm. Volume 57.8 mL. There is anechoic cyst measuring 3.7 x 3.8 x 4.3 cm. There is normal arterial andThere is no free fluid seen in the cul-de-sac. US/US pelvic and transvaginal IMPRESSION: Simple cyst left ovary measuring 4.3 cm. Right ovary, uterus and the cervix appears unremarkable. Electronically signed by: Dion Tai MD 04/28/2025 04:24 PM EST Dictated By: Dion Tai MD Signed By: <Electronically signed by Dion Tai MD in OV> 04/28/25 1624 DD/ 1551 TD/TT: 04/28/25 1603 [employer] Guid[employer] Counselor: [facility] Procedure Note Donotuseinterpreter, Image - 04/28/[address] [address] Ultrasound Report Signed Patient: Denice Najera LMR#: [id number] : 2005Acct:[id number] Age/Sex: 19 FADM Date: 04/28/25 Loc: HO.US Attending Dr: Soha SKELTON Ordering Physician: Soha Arndt Date of Service: 04/28/25 Procedure(s): US pelvic and transvaginal Accession Number(s): [id number] cc: Soha Arndt Reason for Exam: pelvic pain with Hx of ovarian cyst EXAMINATION: US PELVIS CLINICAL INFORMATION: Pelvic pain with history of ovarian cyst. COMPARISON: None available. TECHNIQUE: Ultrasound of the pelvis is performed using both transabdominal and transvaginal transducers along with Doppler. Transvaginal imaging is performed due to inadequate visualization transabdominally. FINDINGS: Uterus: The uterus is anteverted, anteflexed and measures 7.9 x 3.3 x 4.6 cm. The cervix is unremarkable. The double wall endometrial thickness is 6.0 mm. The uterus is smooth in contour and has normal myometrial echogenicity. No visible fibroid. Adnexa: Both ovaries are visualized. There is normal color flow to the adnexa. There is no ovarian torsion. There is no pelvic ascites or fluid collection. Right ovary measures 2.6 x 2.1 x 1.6 cm. Volume 4.6 mL Left ovary measures 5.0 x 4.7 x 4.7 cm. Volume 57.8 mL. There is anechoic cyst measuring 3.7 x 3.8 x 4.3 cm. There is normal arterial andThere is no free fluid seen in the cul-de-sac. US/US pelvic and transvaginal IMPRESSION: Simple cyst left ovary measuring 4.3 cm. Right ovary, uterus and the cervix appears unremarkable. Electronically signed by: Dion Tai MD 04/28/2025 04:24 PM EST RP Dictated By: Dion Tai MD Signed By: <Electronically signed by Dion Tai MD in OV> 04/28/25 1624 DD/ 1551 TD/TT: 04/28/25 1603 [employer] Guid[employer] Counselor: PEDRO us Sohajose juan Arndt PSYCHOLOGIST ENGINEERING IMG US PROCEDURES Final Result * Syphilis Screen (03/11/2025 12:10 PM EST) Syphilis Screen Nonreactive Nonreactive [facility] 03/11/2025 12:1 0 PM EST 03/11/2025 3:59 PM EST us Reena Gonsalez MD LAB BLOOD ORDERABLES Final Resul t [facility] [address] [place] [phone] * Vitamin B12 (Cobalamin) and Folate Panel, Serum (03/11/2025 12:10 PM EST) Vitamin B12 286 200 - 900 pg/mL [facility] Comment:NORMAL 200-900 PG/ML INDETERMINATE 160-199 PG/ML DEFICIENT < 160 PG/ML Folate 7.6 > or = 4.0 ng/mL [facility] Comment:Reference Values:> o r = 4.0 ng/mL< 4.0 ng/mL suggests folate deficiency Methotrexate, aminopterin and folinic acid(leucovorin) are chemotherapeutic agents whose molecularstructures are similar to folate; therefore, the Architectfolate assay cannot be used for patients using these drugs. Blood 03/11/2025 12:1 0 PM EST 03/11/2025 3:59 PM EST us Reena Gonsalez MD LAB BLOOD ORDERABLES Final Resul t Performing Organization Address City/[facility]/ZIP Co de Phone Number [facility] [address] [place] [phone] * TSH with Reflex to Free T4 (03/11/2025 12:10 PM EST) TSH reflex Free T4 0.70 0.32 - 4.0 uIU/mL [facility] Blood 03/11/2025 12:1 0 PM EST 03/11/2025 3:59 PM EST us Reena Gonsalez MD LAB BLOOD ORDERABLES Final Resul t Performing Organization Address [facility] Co de Phone Number [facility] [address] [place] [phone] * (ABNORMAL) CBC auto differential (03/11/2025 12:10 PM EST) White Blood Count 4.7(L) 4.8 - 10.8 X10*3/uL [facility] Red Blood Count 3.94(L) 4.20 - 5.50 X10*6/uL [facility] Hemoglobin 10.3(L) 12.0 - 16.0 g/dl [facility] Hematocrit 33.2(L) 37.0 - 47.0 % [facility] Mean Corpuscular Volume 84.3 80.0 - 98.0 fL [facility] Mean Corpuscular Hemoglobin 26.1(L) 27.0 - 33.0 pg [facility] Mean Corpuscular HGB Conc 31.0 31.0 - 35.0 g/dl [facility] Red Cell Distribution Width 16.2(H) 11.0 - 16.0 % [facility] Platelet Count 225 160 - 400 X10*3/uL [facility] Mean Platelet Volume 9.8 9.4 - 12.3 fL [facility] Neutrophils Percent Auto 60.5 45 - 73 % [facility] Imm Gran Pct Auto 0.2 0.0 - 0.4 % [facility] Lymphocytes Percent Auto 28.8 20 - 40 % [facility] Monocytes Percent Auto 6.4 2 - 11 % [facility] Eosinophils Percent Auto 2.8 0 - 4 % [facility] Basophils Percent Auto 1.3 0 - 2 % [facility] NRBC Pct Auto 0.0 0.0 - 0.2 /100WBC [facility] Neutrophils Absolute Auto 2.8 2.0 - 8.3 x10*3/uL [facility] Imm Gran Abs Auto 0.01 0.00 - 0.03 X10*3/uL [facility] Lymphocytes Absolute Auto 1.4 1.2 - 4.9 X10*3/uL [facility] Monocytes Absolute Auto 0.3 0.1 - 1.2 X10*3/uL [facility] Eosinophils Absolute Auto 0.1 0.0 - 0.4 X10*3/uL [facility] Basophils Absolute Auto 0.1 0.0 - 0.2 X10*3/uL [facility] NRBC Abs Auto 0.000 0.0 - 0.012 X10*3/uL [facility] Blood Venous blood specimen / Unknown 03/11/2025 12:10 PM EST 03/11/2025 12:52 PM EST us Reena Gonsalez MD LAB BLOOD ORDERABLES Final Resul t [facility] [address] [place] [phone] [phone] * Hepatitis C Antibody with Reflex to HCV, RNA, Quantitative, Real-Time PCR (03/11/2025 12:10 PM EST) Hepatitis C Antibody Nonreactive Nonreactive [facility] Comment:Antibodies to HCV no t detected; does not exclude early acuteHCV infection. Venous blood specimen / Unknown 03/11/2025 12:10 PM EST 03/11/2025 3:59 PM EST us Reena Gonsalez MD LAB BLOOD ORDERABLES Final Resul t Performing Organization Address City/[facility]/ZIP Co de Phone Number [facility] [address] [place] [phone] * (ABNORMAL) Iron And Total Iron Binding Capacity (03/11/2025 12:10 PM EST) Pathologist [facility] Iron 17(L) 30 - 160 mcg/dL [facility] Total Iron Binding Capacity 334 228 - 428 mcg/dL [facility] Percent Iron Saturation 5(L) 15 - 50 % [facility] Unsaturated Iron Binding 317 ug/dL [facility] Blood Venous blood specimen / Unknown 03/11/2025 12:10 PM EST 03/11/2025 3:59 PM EST us Reena Gonsalez MD LAB BLOOD ORDERABLES Final Resul t Performing Organization Address City/[facility]/ZIP Co de Phone Number [facility] [address] [place] [phone] * Hepatitis B surface antigen, EIA (03/11/2025 12:10 PM EST) Pathologist [facility] Hepatitis B Surface Ag Negative Negative [facility] Venous blood specimen / Unknown 03/11/2025 12:10 PM EST 03/11/2025 3:59 PM EST Reena Gonsalez MD LAB BLOOD ORDERABLES Final Resul t Performing Organization Address [facility]/ZIP Co de Phone Number [facility] [address] [place] [phone] * HIV-1/2 Antigen and Antibodies, Fourth Generation, with Reflexes (03/11/2025 12:10 PM EST) Pathologist [facility] HIV AB/AG Nonreactive Nonreactive [facility] Comment:HIV-1 p24 Ag and/or HIV-1/HIV-2 Ab not detected.A test result that is nonreactive does not exclude thepossibility of exposure to or infection with HIV-1 and/orHIV-2. Nonreactive results in this assay for individualswith prior exposure to HIV-1 and/or HIV-2 may be due toantigen and antibody levels that are below the limit ofdetection of this assay.The [employer]g HIV Ag/Ab Combo assay result andsupplemental assay results should be interpreted inconjunction with the patient's clinical presentation,history and other laboratory results. If the results areinconsistent with clinical evidence, additional testing issuggested to confirm the result. Venous blood specimen / Unknown 03/11/2025 12:10 PM EST 03/11/2025 3:59 PM EST Reena Gonsalez MD LAB BLOOD ORDERABLES Final Resul t Performing Organization Address City/[facility]/ZIP Co de Phone Number [facility] [address] [place] [phone] * (ABNORMAL) Reticulocyte Count (03/11/2025 12:10 PM EST) Reticulocytes Absolute 0.062 0.026 - 0.095 X10*6/uL [facility] Immature Retic Fraction 14.4 3.0 - 15.9 % [facility] Retic HGB Equivalent 24.2(L) 30.0 - 35.0 pg [facility] Reticulocyte Percent 1.6 0.5 - 1.8 % [facility] Blood Venous blood specimen / Unknown 03/11/2025 12:10 PM EST 03/11/2025 12:52 PM EST Reena Gonsalez MD LAB BLOOD ORDERABLES Final Resul t Performing Organization Address City/[facility]/ZIP Co de Phone Number [facility] [address] [place] [phone] * (ABNORMAL) Ferritin (03/11/2025 12:10 PM EST) Ferritin 6(L) 10 - 122 ng/mL [facility] Blood Venous blood specimen / Unknown 03/11/2025 12:10 PM EST 03/11/2025 3:59 PM EST us Reena Gonsalez MD LAB BLOOD ORDERABLES Final Resul t [facility] [address] [place] [phone] * (ABNORMAL) Comprehensive Metabolic Panel (03/11/2025 12:10 PM EST) Sodium 139 135 - 145 mmol/L [facility] Potassium 4.2 3.3 - 5.1 mmol/L [facility] Chloride 108 96 - 108 mmol/L [facility] Carbon Dioxide 28 22 - 29 mmol/L [facility] Anion Gap 7(L) 12 - 20 [facility] Urea Nitrogen (BUN) 10 9 - 16 mg/dL [facility] Creatinine, Serum 0.77 0.5 - 1.4 mg/dL [facility] Estimated Glomerular Filt Rate >60 [facility] Comment:Chronic Kidney Disea se: Estimated GFR < 60 mL/min/1.35n6Rnsddz Kidney Disease: Estimated GFR < 15 mL/min/1.73m2 Glucose 79 60 - 115 mg/dL [facility] Calcium 8.9 8.4 - 10.2 mg/dL [facility] Bilirubin, Total 0.5 0.0 - 1.0 mg/dL [facility] Aspartate Amino Transferase 31 5 - 31 U/L [facility] Alanine Aminotransferase 21 0 - 31 U/L [facility] Total Protein 7.4 6.5 - 8.0 g/dL [facility] Albumin Level 4.6 3.5 - 5.0 g/dL [facility] Alkaline Phosphatase 77 39 - 117 U/L [facility] Blood Venous blood specimen / Unknown 03/11/2025 12:10 PM EST 03/11/2025 3:59 PM EST Reena Gonsalez MD LAB BLOOD ORDERABLES Final Resul t [facility] [address] [place] [phone] * POCT Urine (02/09/2025 11:52 AM EDT) Preg Test, Ur Negative Negative, Indeterminate, None Detected, Invalid, Specimen unsatisfactory for evaluation, Weakly Positive, 2+ QC Media Lot # [id number] Lot# Expiration Date Urine 02/09/2025 11:5 2 AM EDT Soha Physitracko PSYCHOLOGIST ENGINEERING POINT OF CARE TEST ENTER/EDIT ORDERABLES Final [...] Urine (Urine, Random) 02/09/2025 11:52 AM EDT [employer] PSYCHOLOGIST ENGINEERING POINT OF CARE TEST ENTER/EDIT ORDERABLES Final Result * Bacterial Vaginosis Panel (02/09/2025 11:50 AM EDT) TRICHOMONAS VAGINALIS DETECTION BY PCR NOT DETECTED Not Detect [facility] BACTERIAL VAGINOSIS DETECTION BY PCR NEGATIVE Negative [facility] Comment:The BV organism targ ets [...] DETECTION BY PCR NOT DETECTED Not Detect [facility] My glab krusei PCR NOT DETECTED Not Detect [facility] Swab Vaginal structure / Unknown 02/09/2025 11:50 AM EDT 02/09/2025 5:29 PM EDT Soha Arndt PSYCHOLOGIST ENGINEERING LAB MICROBIOLOGY - GENERAL ORD ERABLES Final Result Performing Organization Address City/[facility]/ZIP Co de Phone Number [facility] [address] [place] [phone] * CHLAMYDIA/N. GONORRHOEAE RNA, TMA, UROGENITAL (01/30/2022 4:13 PM EDT) Chlamydia trachomatis RNA, TMA, Urogenital NOT DETECTED NOT DETECTED [facility] COMMENT SEE COMMENT [facility] Comment: The analytical performance characteristics of this assay, when used to test SurePath(TM) specimens have been determined by [employer]. The modifications have not been cleared or approved by the FDA. This assay has been validated pursuant to the CLIA regulations and is used for clinical purposes. For additional information, please refer to https://education.Kixer.Jamplify/faq/VTV301 (This link is being provided for information/ educational purposes only.) Neisseria gonorrhoeae RNA, TMA, Urogenital NOT DETECTED NOT DETECTED [facility] 01/30/2022 4:13 PM EDT us Reena Gonsalez MD HISTORICAL/NON ORDERABLE LABS Fi nal Result CONVERTED [facility]GAC[facility] LABS from Last 3 Months or Most Recently Relevant to Health Maintenance Insurance [facility] C3 Care Teams Electrical & Instrumentation Supervisor Relationship Specialty Start Date End Date Reena Gonsalez MD [address] [place] [phone] PCP - General Family Medicine 02/07/22
--- OUTSIDE RECORDS SUMMARY | 2025-04-28 18:37 | XMS_ITS | Encounter Summary ---
Author Organization [employer] Address [address] [address] [place] [address] Care Team Providers Care Television Audio Engineer Name Role Phone Reena Gonsalez MD Primary Care Provider [phone] Tracie Hannon Unavailable [phone] Perez Bryan Unavailable Reason for Visit * Reason Onset Date Comments FYI 07/01/2024 Encounter Details Date Type Department Care Team (Late st Contact Info) Description 07/01/2024 Telephone [facility] [address] [place] [address] Reena Gonsalez MD [address] [place] [address] FYI Social History Tobacco Use [...] Pt is requesting a call back at [phone] documented in this encounter Plan of Treatment Not on file documented as of this encounter Visit Diagnoses Not on filedocumented in this encounter Additional Health Concerns Assessment Noted Time PHQ-9 Depression Total Score: 15 024 3:15 PM EDT documented as of this encounter Care Teams Television Audio Engineer Relationship Specialty Start Date End Date Reena Gonsalez MD [address] [place] [phone] PCP - General Family Medicine 02/07/22 Tracie Hannon Registered Nurse 02/23/25 02/23/25 Perez Bryan 02/23/25 02/23/25 documented as of this encounter
--- OUTSIDE RECORDS SUMMARY | 2025-04-28 18:37 | XMS_ITS | Encounter Summary ---
Author Organization [employer] Address [address] [facility] [address] [place] [address] Care Team Providers Care Bookkeeping Manager Name Role Phone Reena Gonsalez MD Primary Care Provider [phone] Tracie Hannon Unavailable [phone] Perez Bryan Unavailable Reason for Visit * Reason Onset Date Comments callback requested 03/07/2024 Encounter Details Date Type Department Care Team ([facility] st Contact Info) Description 03/07/2024 Telephone [facility] [address] [place] [address] Reena Gonsalez MD [address] [place] [address] callback requested Social History Tobacco [...] - 03/07/2024 4:07 PM EST Tc from [facility]) requesting a callback due to pt reasonable accomodation paperwork. [facility] callback number [phone] / ext [phone] documented in this encounter Plan of Treatment Not on file documented as of this encounter Visit Diagnoses Not on filedocumented in this encounter Additional Health Concerns Assessment Noted Time PHQ-9 Depression Total Score: 15 024 3:15 PM EDT documented as of this encounter Care Teams Bookkeeping Manager Relationship Specialty Start Date End Date Reena Gonsalez MD [address] [place] [id number] PCP - General Family Medicine 02/07/22 Tracie Hannon Registered Nurse 02/23/25 02/23/25 Perez Bryan 02/23/25 02/23/25 documented as of this encounter
== END 2025-04-28 15:10 | disposition home or self-care (01) ==
LOC: HO.US 15:09
PROVIDERS: Visit Provider Nurse Practitioner Family
DX: N73.9 Female pelvic inflammatory disease, unspecified (principal); N94.10 Unspecified dyspareunia; R10.20 Pelvic and perineal pain unspecified side; Z87.42 Personal history of other diseases of the female genital tract
CPT/HCPCS: 76830; 76856

== ENCOUNTER → 2025-04-28 15:10 | Outpatient (BNV) | payer MEDICAID, SELFPAY | PROVIDERS: Visit Provider Radiology Diagnostic Radiology | DX: N83.292 Other ovarian cyst, left side (principal); R10.20 Pelvic and perineal pain unspecified side | CPT/HCPCS: 76830; 76856 ==